=== PATIENT | female | born 1990 | race Caucasian/White ===

== ENCOUNTER → 2018-03-03 11:47 | Outpatient (CLI) | payer OTHER, SELFPAY ==
[2018-03-10 09:53] LABS: HPV HC, High Risk Negative (Negative)
== END ==
PROVIDERS: Visit Provider Obstetrics & Gynecology
DX: Z01.419 Encounter for gynecological examination (general) (routine) without abnormal findings (principal)
CPT/HCPCS: 87624; 88175; G0145

== ENCOUNTER → 2020-03-12 14:06 | Outpatient (CLI) | payer OTHER, SELFPAY ==
[2015-10-25 05:33] VITALS: BMI 39.1
[2020-03-17 17:31] LABS: HPV Reflexed? NOT INDICATED
== END ==
PROVIDERS: PCP Family Medicine; Visit Provider Obstetrics & Gynecology
DX: Z12.4 Encounter for screening for malignant neoplasm of cervix (principal)
CPT/HCPCS: 88175; G0145

== ENCOUNTER → 2022-05-21 | Outpatient (CLI) | payer BC, SELFPAY ==
[2022-05-31 17:47] LABS: HPV APTIMA, High Risk Negative
== END | disposition home or self-care (01) ==
LOC: LABSPEC 13:55
PROVIDERS: PCP Family Medicine; Visit Provider Obstetrics & Gynecology
DX: Z12.4 Encounter for screening for malignant neoplasm of cervix (principal)
CPT/HCPCS: 87624; 88175; G0145